=== PATIENT | female | born 1955 | race Caucasian/White ===

== ENCOUNTER 2022-02-28 06:29 | Day surgery (SDC) | payer OTHER ==
[~2022-02-28] VITALS: Ht 152.4 cm; Wt 57.2 kg
[2022-02-28] MEDS ORDERED: CEFAZOLIN SOD 2 GM in D5W 50 ML IV ONE (07:00)
[2022-02-28] MEDS ORDERED: SUCCINYLCHOLINE CHLORIDE 20 MG/ML(QUELICIN) ONE (08:33)
[2022-02-28] MEDS ORDERED: LIDOCAINE/EPI MPF 1%1:200000 30 ML VIAL ONE (08:33)
[2022-02-28] MEDS ORDERED: ePHEDrine sulfate 50 MG/ML VIAL ONE (08:33)
[2022-02-28] MEDS ORDERED: NS IRRIG SOLN 1000 ML IR ONE (08:33)
[2022-02-28] MEDS ORDERED: DEXAMETHASONE SOD PHOSPHATE 4 MG/ML VIAL ONE (08:33)
[2022-02-28] MEDS ORDERED: ONDANSETRON HCL 4 MG/2 ML VIAL ONE ×2 (08:33→14:32)
[2022-02-28] MEDS ORDERED: MIDAZOLAM HCL 2 MG/2 ML VIAL (VERSED) ONE (08:33)
[2022-02-28] MEDS ORDERED: SEVOFLURANE 15 MIN GAS INH ONE (08:33)
[2022-02-28] MEDS ORDERED: HYDROmorphone 2 MG/ML VIAL ONE (08:33)
[2022-02-28] MEDS ORDERED: PROPOFOL 200MG/ 20ML VIAL (DIPRIVAN) IV ONE (08:33)
[2022-02-28] MEDS ORDERED: GLYCOPYRROLATE 0.2 MG/ML VIAL ONE (08:33)
[2022-02-28] MEDS ORDERED: LR 1,000 ML IV.SOLN IV ONE (08:33)
[2022-02-28] MEDS ORDERED: PHENYLEPHRINE HCL 10 MG/ML VIAL (NEOSYNEPHRINE) ONE (08:33)
[2022-02-28] MEDS ORDERED: SYN50 PO (11:27)
[2022-02-28] MEDS ORDERED: TOPXL100 PO (11:27)
[2022-02-28] MEDS ORDERED: VALS80TA2 PO (11:27)
[2022-02-28] MEDS ORDERED: DOCU-144 PO (11:27)
[2022-02-28] MEDS ORDERED: METF-518 PO (11:27)
[2022-02-28] MEDS ORDERED: HYDR25TA4 PO (11:27)
[2022-02-28] MEDS ORDERED: EVOL140P3 SUBCUT (11:27)
[2022-02-28] MEDS ORDERED: VITD2000 PO (11:27)
[2022-02-28] MEDS ORDERED: MORPHINE 4 MG INJ. 4 MG/ML VIAL IVP PRN ×2 (13:00)
[2022-02-28] MEDS ORDERED: ONDANSETRON HCL 4 MG/2 ML VIAL IVP PRN ×2 (13:00→13:45)
[2022-02-28] MEDS ORDERED: HYDROmorphone 1 MG/ML INJ. CARTRIDGE IVP PRN (13:00)
[2022-02-28 13:35] LABS: ALBUMIN 3.4 g/dL (3.4-4.8); CALCIUM 8.5 mg/dL (8.4-11.0)
[2022-02-28] MEDS ORDERED: ACETAMINOPHEN 500 MG TABLET PO PRN (13:45)
[2022-02-28] MEDS ORDERED: ONDANSETRON 4 MG ODT TAB PO PRN (13:45)
[2022-02-28 15:00] VITALS: BP_SYST 108
[2022-02-28] MEDS ORDERED: METOCLOPRAMIDE HCL 10 MG/2 ML VIAL IVP PRN (18:15)
[2022-02-28] MEDS ORDERED: PANTOPRAZOLE SODIUM 40 MG/VIAL (PROTONIX) ONE (18:18)
[2022-02-28] MEDS ORDERED: PANTOPRAZOLE SODIUM 40 MG/VIAL (PROTONIX) IVP ONE (18:30)
[2022-02-28 21:00] VITALS: BP_SYST 118
[2022-03-01 00:20] VITALS: BP_SYST 130
[2022-03-01 08:00] VITALS: BP_SYST 123
[2022-03-01] MEDS ORDERED: PANTOPRAZOLE SODIUM 40 MG/VIAL (PROTONIX) IVP SCH (09:00)
[2022-03-01 12:21] VITALS: BP_SYST 120
[2022-03-01 12:26] VITALS: BP_SYST 128
== END 2022-03-01 12:30 | disposition home or self-care (01) ==
LOC: SDS 06:29 → SMU 06:30 → SDS 03-01 12:30
PROVIDERS: ATTEND Otolaryngology
DX: C73 Malignant neoplasm of thyroid gland (principal); I10 Essential (primary) hypertension; E78.5 Hyperlipidemia, unspecified; E11.9 Type 2 diabetes mellitus without complications; Z79.899 Other long term (current) drug therapy; Z20.822 Contact with and (suspected) exposure to COVID-19
CPT/HCPCS: 36415 ×2; 60240; 82040; 82310; 82948; 82962; 83970; 87081; 87426; 88307; 88311; C1782; C9113 ×2; J0330; J0690; J1100; J1170; J2370; J2405; J2704; J3465; J3490; J7060; J7120; U0003